=== PATIENT | female | born 2000 | race Caucasian/White ===

== ENCOUNTER 2021-04-03 22:53 | Emergency (ER) | payer OTHER, SELFPAY ==
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
[2021-04-03 22:54] VITALS: BP 151/89; PULSE 114; RESP 18; TEMP 36.2; O2SAT 100
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
[2021-04-04] MEDS: diazePAM (*CRX) 5 MG TABLET PO (03:04)
[2021-04-04] MEDS: IBUPROFEN 400 MG TABLET 800 MG PO (03:04)
[2021-04-04 04:08] VITALS: BP 133/87; PULSE 99; RESP 17; O2SAT 99
[2021-04-04 05:05] VITALS: BP 127/81; PULSE 89; RESP 15; O2SAT 100
== END 2021-04-04 05:06 | disposition home or self-care (01) ==
PROVIDERS: Emergency Provider Emergency Medicine; PCP Pediatrics
DX: S16.1XXA Strain of muscle, fascia and tendon at neck level, initial encounter (principal); S29.019A Strain of muscle and tendon of unspecified wall of thorax, initial encounter; R51.9 Headache, unspecified; V49.40XA Driver injured in collision with unspecified motor vehicles in traffic accident, initial encounter
CPT/HCPCS: 70450; 72125; 72128; 81025; 99284; A9270